=== PATIENT | female | born 1965 | race American Indian/Alaskan Native ===

== ENCOUNTER 2017-04-16 09:54 | Emergency (ER) | payer BC ==
[2017-04-16] MEDS ORDERED: TYLENOL #3 PO ONE (14:20)
[2017-04-16] MEDS ORDERED: MOTRIN PO ONE (14:22)
--- NOTE | 2017-04-16 14:22 | Emergency Department Report ---
ED Lower Extremity HPI - General Chief Complaint: Extremity Injury, Lower Stated Complaint: LEFT KNEE PAIN/SWELLING Time Seen by Provider: 04/16/17 14:18 Source: patient Mode of arrival: Ambulatory Limitations: No Limitations - History of Present Illness Initial Comments: 51-year-old female past medical history diabetes presents with complaint of left anterior knee pain status post mechanical blunt trauma yesterday. Patient states that she accidentally bumped the front of her left knee against a cabinet drawer. Denies any other injuries, denies sustaining any lacerations. Patient is ambulatory but complaining of pain in her left knee joint. MD Complaint: knee injury Onset/Timin -: days(s) Injury: Knee: Left (left anterior knee pain) Type of Injury: blunt Severity: moderate Severity scale (0 -10): 5 Improves With: NSAID Worsens With: nothing Context: direct blow Other Symptoms: loss of consciousness Associated Symptoms: swelling, ambulatory (patient ambulatory without assistance ) - Related Data Home Medications Medication Instructions Recorded Confirmed Last Taken Diazepam Tab [Valium] 1 tab PO PRN 11/05/15 11/05/15 Ibuprofen 800 mg PO Q6H 11/05/15 11/05/15 Unknown Lisinopril [Zestril TAB] 2.5 mg PO BID 11/05/15 11/05/15 11/05/15 metFORMIN [Glucophage] 1 tab PO BID 11/05/15 11/05/15 11/05/15 Previous Rx's Medication Instructions Recorded Last Taken Type Cyclobenzaprine HCl [Flexeril 5 MG 5 mg PO TID PRN #20 tab 11/05/15 Unknown Rx TAB] Acetaminophen/Codeine [Tylenol 1 tab PO Q6H PRN #12 tab 04/16/17 Unknown Rx /Codeine # 3 tab] Ibuprofen [Motrin] 800 mg PO Q8HR PRN #20 tablet 04/16/17 Unknown Rx Allergies Allergy/AdvReac Type Severity Reaction Status Date / Time No Known Allergies Allergy Unverified 11/05/15 11:04 ED Review of Systems ROS: Stated complaint: LEFT KNEE PAIN/SWELLING Other details as noted in HPI Constitutional: denies: chills, fever Eyes: denies: eye pain, eye discharge, vision change ENT: denies: ear pain, throat pain Respiratory: denies: cough, shortness of breath, wheezing Cardiovascular: denies: chest pain, palpitations Endocrine: no symptoms reported Gastrointestinal: denies: abdominal pain, nausea, diarrhea Genitourinary: denies: urgency, dysuria, discharge Musculoskeletal: denies: back pain, joint swelling, arthralgia Skin: denies: rash, lesions Neurological: denies: headache, weakness, paresthesias Psychiatric: denies: anxiety, depression Hematological/Lymphatic: denies: easy bleeding, easy bruising ED Past Medical Hx - Past Medical History Hx Diabetes: Yes - Surgical History Additional Surgical History: Hysterectomy - Social History Smoking Status: Current Some Day Smoker Substance Use Type: Alcohol - Medications Home Medications: Home Medications Medication Instructions Recorded Confirmed Last Taken Type Cyclobenzaprine HCl [Flexeril 5 MG 5 mg PO TID PRN #20 tab 11/05/15 Unknown Rx TAB] Diazepam Tab [Valium] 1 tab PO PRN 11/05/15 11/05/15 History Ibuprofen 800 mg PO Q6H 11/05/15 11/05/15 Unknown History Lisinopril [Zestril TAB] 2.5 mg PO BID 11/05/15 11/05/15 11/05/15 History metFORMIN [Glucophage] 1 tab PO BID 11/05/15 11/05/15 11/05/15 History Acetaminophen/Codeine [Tylenol 1 tab PO Q6H PRN #12 tab 04/16/17 Unknown Rx /Codeine # 3 tab] Ibuprofen [Motrin] 800 mg PO Q8HR PRN #20 tablet 04/16/17 Unknown Rx ED Physical Exam - General Limitations: No Limitations General appearance: alert, in no apparent distress - Head Head exam: Present: atraumatic, normocephalic - Eye Eye exam: Present: normal appearance, PERRL, EOMI - ENT ENT exam: Present: mucous membranes moist - Neck Neck exam: Present: normal inspection - Respiratory Respiratory exam: Present: normal lung sounds bilaterally. Absent: respiratory distress - Cardiovascular Cardiovascular Exam: Present: regular rate, normal rhythm. Absent: systolic murmur, diastolic murmur, rubs, gallop - GI/Abdominal GI/Abdominal exam: Present: soft, normal bowel sounds - Extremities Exam Extremities exam: Present: normal inspection - Expanded Lower Extremity Exam Left Upper Leg exam: Present: normal inspection, full ROM Knee exam: Present: full ROM (knee flexion and extension intact on exam against resistance), tenderness (tenderness and swelling anterior left knee level of patella), full knee extension Lower Leg exam: Present: normal inspection, full ROM Ankle exam: Present: normal inspection, full ROM Foot/Toe exam: Present: normal inspection, full ROM Neuro vascular tendon exam: Present: no vascular compromise (distal capillary refill dorsalis pedis pulses intact) 1 - Left anterior knee pain on palpation here some visible swelling - Back Exam Back exam: Present: normal inspection - Neurological Exam Neurological exam: Present: alert, oriented X3, CN II-XII intact, normal gait - Psychiatric Psychiatric exam: Present: normal affect, normal mood - Skin Skin exam: Present: warm, dry, intact, normal color. Absent: rash ED Course Vital Signs 04/16/17 04/16/17 10:05 15:17 Temperature 98.9 F 99.4 F Pulse Rate 101 H 96 H Respiratory 16 16 Rate Blood Pressure 141/98 113/70 O2 Sat by Pulse 98 99 Oximetry ED Lower Extremity MDM - Medical Decision Making A/P: Knee contusion 1-RICE therapy 2-Motrin and Tylenol 3 when necessary 3-Bryce wraps left knee 4-follow up with primary care and orthopedics Critical care attestation.: If time is entered above; I have spent that time in minutes in the direct care of this critically ill patient, excluding procedure time. ED Disposition Clinical Impression: Left knee pain Qualifiers: Chronicity: acute Qualified Code(s): M25.562 - Pain in left knee Disposition: DC- TO HOME OR SELFCARE Is pt being admited?: No Does the pt Need Aspirin: No Condition: Stable Instructions: Contusion in Adults (ED), Knee Pain (ED), Arthralgia (ED), RICE Therapy (ED) Prescriptions: Acetaminophen/Codeine [Tylenol /Codeine # 3 tab] 1 tab PO Q6H PRN #12 tab PRN Reason: Pain Ibuprofen [Motrin] 800 mg PO Q8HR PRN #20 tablet PRN Reason: Pain Referrals: RUBEN RUBIO MD [Staff Physician] - 3-5 Days Forms: Work/School Release Form(ED) Time of Disposition: 16:07
--- NOTE | 2017-04-16 14:55 | XRay Report ---
XRAY LEFT KNEE FOUR VIEWS: 04/16/17 09:54:00 CLINICAL: Pain after blunt trauma to the knee. FINDINGS: Mild osteopenia. No fracture or dislocation. Mild arthritis of the patellofemoral joint with small osteophytes. Mild medial joint space narrowing. Small knee joint effusion. Mild soft tissue edema of the anterior soft tissues of the distal thigh. No foreign body or soft tissue air. IMPRESSION: Small knee joint effusion and mild soft tissue edema. Mild patellofemoral joint and medial joint space arthritis.
[2017-04-16 15:19] VITALS: BP 113/70
--- NOTE | 2017-04-16 15:37 | Ultrasound Report ---
ULTRASOUND EXTREMITY NONVASCULAR LIMITED LEFT INDICATION: Status post knee trauma on Friday. Pain and swelling. Evaluate for Linton's cyst. COMPARISON: None similar. FINDINGS: Sonographic evaluation of the left knee demonstrates an elongated, 6 x 1.1 x 3.9 cm fluid collection at the knee anteriorly as on images 10-22. No evidence of a popliteal cyst. CONCLUSION: Left knee fluid collection anteriorly noted, as described. Thank you for the opportunity to participate in this patient's care.
== END 2017-04-16 16:31 | disposition home or self-care (01) ==
LOC: ED 09:54
DX: M25.562 Pain in left knee (principal); E11.9 Type 2 diabetes mellitus without complications; F17.200 Nicotine dependence, unspecified, uncomplicated

== ENCOUNTER 2017-12-02 05:28 | Emergency (ER) | payer BC ==
[2017-12-02 05:49] VITALS: BP 131/90
[2017-12-02 06:14] LABS: Basophils % (Auto) 0.5 % (0.0-1.8); Eosinophils # (Auto) 0.4 K/mm3 (0.0-0.4); Eosinophils % (Auto) 6.1 % (0.0-4.3); Hematocrit 43.1 % (30.3-42.9); Hemoglobin 14.7 gm/dl (10.1-14.3); Lymphocytes # (Auto) 2.4 K/mm3 (1.2-5.4); Lymphocytes % (Auto) 38.8 % (13.4-35.0); Mean Corpuscular HGB Conc 34 % (30-34); Mean Corpuscular Hemoglobin 33 pg (28-32); Mean Corpuscular Volume 97 fl (79-97); Monocytes # (Auto) 0.5 K/mm3 (0.0-0.8); Monocytes % (Auto) 7.8 % (0.0-7.3); Platelet Count 256 K/mm3 (140-440); Red Blood Count 4.43 M/mm3 (3.65-5.03); Red Cell Distribution Width 12.5 % (13.2-15.2)
[2017-12-02 06:34] LABS: Alanine Aminotransferase 19 units/L (7-56); Albumin 4.5 g/dL (3.9-5); BUN/Creatinine Ratio 37; Blood Urea Nitrogen 22 mg/dL (7-17); Calcium 9.7 mg/dL (8.4-10.2); Hemolysis Index 3; Lipase 24 units/L (13-60)
[2017-12-02 07:32] LABS: Bilirubin,Urine NEG (Negative); Blood,Urine LG (Negative); Color,Urine Yellow (Yellow); Mucus,Urine 1+ /HPF; Urobilinogen,Urine < 2.0 mg/dL (<2.0)
== END 2017-12-02 19:07 | disposition left against medical advice (07) ==
LOC: ED 05:28
DX: R73.9 Hyperglycemia, unspecified (principal); R10.9 Unspecified abdominal pain; R11.0 Nausea; R51 Headache; Z53.21 Procedure and treatment not carried out due to patient leaving prior to being seen by health care provider
CPT/HCPCS: 36415; 80053; 81001; 82962; 83690; 85025

== ENCOUNTER 2020-12-07 07:01 | Emergency (ER) | payer BC, OTHER ==
--- NOTE | 2020-12-07 07:33 | Event Note ---
ED Screening Note Date of service: 12/07/20 Time: 07:31 ED Screening Note: 55 yr old female with pmhx of DM, IBS, chronic right LQ pain and tobacco use presents to ED with complaints of left ear pain and right upper quadrant abdominal pain since Friday. She reports nausea but no vomiting. She has chronic diarrhea due to her IBS but she states that Friday she had increased amount of diarrhea but this has since slowed down. She reports rhinorrhea but no other URI symptoms or cough. She denies any chest pain or shortness of breath. She denies any UTI symptoms. She denies any fever or chills at home. This initial assessment/diagnostic orders/clinical plan/treatment(s) is/are subject to change based on patients health status, clinical progression and re- assessment by fellow clinical providers in the ED. Further treatment and workup at subsequent clinical providers discretion. Patient/guardian urged not to elope from the ED as their condition may be serious if not clinically assessed and managed. Initial orders include: Abdominal pain order set
[2020-12-07 08:01] LABS: Basophils % (Auto) 0.4 % (0.0-1.8); Eosinophils % (Auto) 0.3 % (0.0-4.3); Hematocrit 36.6 % (30.3-42.9); Hemoglobin 12.6 gm/dl (10.1-14.3); Lymphocytes # (Auto) 1.1 K/mm3 (1.2-5.4); Lymphocytes % (Auto) 10.1 % (13.4-35.0); Mean Corpuscular HGB Conc 34 % (30-34); Mean Corpuscular Volume 98 fl (79-97); Monocytes # (Auto) 0.6 K/mm3 (0.0-0.8); Platelet Count 227 K/mm3 (140-440); Red Blood Count 3.74 M/mm3 (3.65-5.03); Red Cell Distribution Width 12.9 % (13.2-15.2)
[2020-12-07] MEDS ORDERED: KETOROLAC 30 MG/1 ML INJ IV ONE (08:08)
--- NOTE | 2020-12-07 08:09 | Emergency Department Report ---
ED General Adult HPI - General Chief complaint: Abdominal Pain Stated complaint: LEFT EARACHE/RT SIDE PAIN Time Seen by Provider: 12/07/20 08:04 Source: patient Mode of arrival: Ambulatory Limitations: No Limitations - History of Present Illness Initial comments: Patient presents for evaluation of 4-day history of intermittent left-sided ear pain. Patient states at symptom onset, she sneezed 1 time (denies any ongoing cough, denies sore throat, denies fever) and abruptly began having crampy moderate right lower quadrant abdominal pain which has occurred intermittently since. Patient denies nausea vomiting or diarrhea, denies constipation, denies dysuria. - Related Data Home Medications Medication Instructions Recorded Confirmed Last Taken Ibuprofen 800 mg PO Q6H 11/05/15 11/05/15 Unknown Lisinopril [Zestril TAB] 2.5 mg PO BID 11/05/15 11/05/15 11/05/15 diazePAM TAB [Valium] 1 tab PO PRN 11/05/15 11/05/15 metFORMIN [Glucophage] 1 tab PO BID 11/05/15 11/05/15 11/05/15 Previous Rx's Medication Instructions Recorded Last Taken Type Cyclobenzaprine HCl [Flexeril 5 MG 5 mg PO TID PRN #20 tab 11/05/15 Unknown Rx TAB] Acetaminophen/Codeine [Tylenol 1 tab PO Q6H PRN #12 tab 04/16/17 Unknown Rx /Codeine # 3 tab] Ibuprofen [Motrin] 800 mg PO Q8HR PRN #20 tablet 04/16/17 Unknown Rx Docusate Sodium [Colace] 100 mg PO BID PRN #30 capsule 08/15/18 Unknown Rx Ibuprofen [Motrin 800 MG tab] 800 mg PO Q8HR PRN #20 tablet 08/15/18 Unknown Rx Ondansetron [Zofran ODT TAB] 8 mg PO Q8HR #20 tab.rapdis 08/15/18 Unknown Rx traMADoL [Ultram] 50 mg PO Q6HR PRN #14 tablet 08/15/18 Unknown Rx Amoxicillin/Potassium Clav 1 each PO BID #20 tablet 12/07/20 Unknown Rx [Augmentin 875-125 Tablet] Ciprofloxacin 0.2%(Nf) 4 each OT BID 7 Days #1 droperette 12/07/20 Unknown Rx [Ciprofloxacin OTIC] oxyCODONE /ACETAMINOPHEN [Percocet 1 tab PO Q6HR PRN #10 tablet 12/07/20 Unknown Rx 5/325] Allergies Allergy/AdvReac Type Severity Reaction Status Date / Time No Known Allergies Allergy Verified 12/07/20 07:18 ED Review of Systems ROS: Stated complaint: LEFT EARACHE/RT SIDE PAIN Other details as noted in HPI Comment: All other systems reviewed and negative ED Past Medical Hx - Past Medical History Hx Diabetes: Yes Hx Kidney Stones: Yes - Surgical History Additional Surgical History: Hysterectomy, X2, kidney stone removal. IUFD @ 13 weeks, delivered at 8 months. cyst removed from ovary - Social History Smoking Status: Never Smoker Substance Use Type: None - Medications Home Medications: Home Medications Medication Instructions Recorded Confirmed Last Taken Type Cyclobenzaprine HCl [Flexeril 5 MG 5 mg PO TID PRN #20 tab 11/05/15 Unknown Rx TAB] Ibuprofen 800 mg PO Q6H 11/05/15 11/05/15 Unknown History Lisinopril [Zestril TAB] 2.5 mg PO BID 11/05/15 11/05/15 11/05/15 History diazePAM TAB [Valium] 1 tab PO PRN 11/05/15 11/05/15 History metFORMIN [Glucophage] 1 tab PO BID 11/05/15 11/05/15 11/05/15 History Acetaminophen/Codeine [Tylenol 1 tab PO Q6H PRN #12 tab 04/16/17 Unknown Rx /Codeine # 3 tab] Ibuprofen [Motrin] 800 mg PO Q8HR PRN #20 tablet 04/16/17 Unknown Rx Docusate Sodium [Colace] 100 mg PO BID PRN #30 capsule 08/15/18 Unknown Rx Ibuprofen [Motrin 800 MG tab] 800 mg PO Q8HR PRN #20 tablet 08/15/18 Unknown Rx Ondansetron [Zofran ODT TAB] 8 mg PO Q8HR #20 tab.rapdis 08/15/18 Unknown Rx traMADoL [Ultram] 50 mg PO Q6HR PRN #14 tablet 08/15/18 Unknown Rx Amoxicillin/Potassium Clav 1 each PO BID #20 tablet 12/07/20 Unknown Rx [Augmentin 875-125 Tablet] Ciprofloxacin 0.2%(Nf) 4 each OT BID 7 Days #1 droperette 12/07/20 Unknown Rx [Ciprofloxacin OTIC] oxyCODONE /ACETAMINOPHEN [Percocet 1 tab PO Q6HR PRN #10 tablet 12/07/20 Unknown Rx 5/325] ED Physical Exam - General Limitations: No Limitations General appearance: alert, in no apparent distress - Head Head exam: Present: atraumatic, normocephalic - Eye Eye exam: Present: normal appearance - ENT ENT exam: Present: other (Tenderness on manipulation of left helix and tragus, swelling and erythema to left otic canal) - Neck Neck exam: Present: normal inspection - Respiratory Respiratory exam: Present: normal lung sounds bilaterally. Absent: respiratory distress - Cardiovascular Cardiovascular Exam: Present: regular rate, normal rhythm - GI/Abdominal GI/Abdominal exam: Present: soft, tenderness (Moderate right lower quadrant tenderness), normal bowel sounds - Extremities Exam Extremities exam: Present: normal inspection - Back Exam Back exam: Present: normal inspection - Neurological Exam Neurological exam: Present: alert, oriented X3 - Psychiatric Psychiatric exam: Present: normal affect, normal mood - Skin Skin exam: Present: warm, dry, intact, normal color. Absent: rash ED Course Vital Signs 12/07/20 12/07/20 12/07/20 07:22 08:28 08:30 Temperature 100.1 F H Pulse Rate 114 H Respiratory 20 Rate Blood Pressure 133/81 O2 Sat by Pulse 98 96 97 Oximetry 12/07/20 12/07/20 12/07/20 08:45 09:00 09:51 Temperature Pulse Rate 110 H 111 H 113 H Respiratory 21 Rate Blood Pressure 124/73 124/73 115/70 O2 Sat by Pulse 96 96 Oximetry 12/07/20 12/07/20 12/07/20 10:00 10:15 10:31 Temperature Pulse Rate 112 H 116 H 115 H Respiratory 24 30 H Rate Blood Pressure 122/72 122/72 115/70 O2 Sat by Pulse Oximetry 12/07/20 12/07/20 12/07/20 10:45 11:00 11:15 Temperature Pulse Rate 117 H 116 H 118 H Respiratory 34 H 33 H 28 H Rate Blood Pressure 115/70 107/62 107/62 O2 Sat by Pulse Oximetry 12/07/20 12/07/20 12/07/20 11:43 11:45 12:00 Temperature Pulse Rate 116 H Respiratory 38 H Rate Blood Pressure 122/72 122/72 113/68 O2 Sat by Pulse 96 98 97 Oximetry 12/07/20 12/07/20 12/07/20 12:31 13:00 13:30 Temperature Pulse Rate 120 H 109 H 103 H Respiratory 20 29 H 33 H Rate Blood Pressure 113/68 90/53 87/58 O2 Sat by Pulse 97 96 95 Oximetry 12/07/20 12/07/20 12/07/20 13:45 14:01 14:15 Temperature Pulse Rate 107 H 108 H 108 H Respiratory 32 H 34 H 30 H Rate Blood Pressure 86/56 95/60 99/63 O2 Sat by Pulse 93 94 95 Oximetry - Reevaluation(s) Reevaluation #1: 12/07/20 10:04 Patient initially treated with IV normal saline and Toradol 50 mg IV x1. Reevaluation #2: 12/07/20 10:04 On reevaluation, patient remains in no acute distress, however, remains tachycardic, consequently given additional IV normal saline 1 L x 1. Patient continues to complain of severe left ear pain, given morphine 4 mg IV x1, CT shows diverticulitis, treated with Zosyn 4.5 g IV x1. Reevaluation #3: 12/07/20 11:08 Patient remains tachycardic, given Tylenol 975 p.o. x1 Reevaluation #4: 12/07/20 14:46 Patient given third liter IV normal saline as she remains tachycardic, blood pressure at one point borderline low at 90/46, patient has multiple consecutive reassuring values with systolic greater than 100, in no acute distress, requesting food. Abdomen soft, minimal right lower quadrant tenderness consistent with CT read of diverticulitis. Patient nontoxic-appearing, advised she must follow-up with primary care doctor and/or GI and/or surgery in 1 to 2 days for reevaluation, noting further imaging and/or surgical resection of area may be necessary. ED Medical Decision Making - Lab Data Result diagrams: 12/07/20 07:49 12/07/20 07:49 Labs 12/07/20 12/07/20 07:49 07:49 WBC 10.8 RBC 3.74 Hgb 12.6 Hct 36.6 MCV 98 H MCH 34 H MCHC 34 RDW 12.9 L Plt Count 227 Lymph % (Auto) 10.1 L Desha % (Auto) 6.0 Eos % (Auto) 0.3 Baso % (Auto) 0.4 Lymph # (Auto) 1.1 L Desha # (Auto) 0.6 Eos # (Auto) 0.0 Baso # (Auto) 0.0 Seg Neutrophils % 83.2 H Seg Neutrophils # 9.0 H Sodium 135 L Potassium 4.1 Chloride 102.1 Carbon Dioxide 24 Anion Gap 13 BUN 19 H Creatinine 0.6 Estimated GFR > 60 BUN/Creatinine Ratio 32 Glucose 167 H Calcium 8.9 Total Bilirubin 0.40 Direct Bilirubin < 0.2 Indirect Bilirubin 0.2 AST 10 ALT 18 Alkaline Phosphatase 91 Total Protein 7.1 Albumin 3.8 L Albumin/Globulin Ratio 1.2 Lipase 22 Vital Signs 12/07/20 12/07/20 12/07/20 07:22 08:28 08:30 Temperature 100.1 F H Pulse Rate 114 H Respiratory 20 Rate Blood Pressure 133/81 O2 Sat by Pulse 98 96 97 Oximetry 12/07/20 12/07/20 12/07/20 08:45 09:00 09:51 Temperature Pulse Rate 110 H 111 H 113 H Respiratory 21 Rate Blood Pressure 124/73 124/73 115/70 O2 Sat by Pulse 96 96 Oximetry 12/07/20 12/07/20 12/07/20 10:00 10:15 10:31 Temperature Pulse Rate 112 H 116 H 115 H Respiratory 24 30 H Rate Blood Pressure 122/72 122/72 115/70 O2 Sat by Pulse Oximetry 12/07/20 12/07/20 12/07/20 10:45 11:00 11:15 Temperature Pulse Rate 117 H 116 H 118 H Respiratory 34 H 33 H 28 H Rate Blood Pressure 115/70 107/62 107/62 O2 Sat by Pulse Oximetry 12/07/20 12/07/20 12/07/20 11:43 11:45 12:00 Temperature Pulse Rate 116 H Respiratory 38 H Rate Blood Pressure 122/72 122/72 113/68 O2 Sat by Pulse 96 98 97 Oximetry 12/07/20 12/07/20 12/07/20 12:31 13:00 13:30 Temperature Pulse Rate 120 H 109 H 103 H Respiratory 20 29 H 33 H Rate Blood Pressure 113/68 90/53 87/58 O2 Sat by Pulse 97 96 95 Oximetry 12/07/20 12/07/20 12/07/20 13:45 14:01 14:15 Temperature Pulse Rate 107 H 108 H 108 H Respiratory 32 H 34 H 30 H Rate Blood Pressure 86/56 95/60 99/63 O2 Sat by Pulse 93 94 95 Oximetry - Radiology Data Radiology results: report reviewed CT ABDOMEN AND PELVIS WITH CONTRAST INDICATION / CLINICAL INFORMATION: MAIN. TECHNIQUE: Axial CT images were obtained through the abdomen and pelvis after 100 cc of Omnipaque [address] scans at this location are performed using CT dose reduction for ALARA by means of automated exposure control. COMPARISON: CT scan dated 08/15/2018 FINDINGS: LOWER CHEST: No significant abnormality. LIVER: No significant abnormality. GALLBLADDER: No significant abnormality. BILE DUCTS: No significant abnormality. PANCREAS: No significant abnormality. SPLEEN: No significant abnormality. ADRENALS: No significant abnormality. RIGHT KIDNEY / URETER: Several renal cysts are noted and appear unchanged which has minimal calcification. There is calyceal stones the largest measures 1 cm in the mid right kidney. This measures up to 752 Hounsfield units. LEFT KIDNEY / URETER: Renal cysts are noted and appear unchanged. STOMACH / SMALL BOWEL: No significant abnormality. COLON: There is diverticulitis involving the proximal right colon. There is extraluminal gas in the mesentery adjacent to the colon there is surrounding inflammation. There is no abscess. APPENDIX: No significant abnormality. PERITONEUM: No free fluid. No free air. No fluid collection. LYMPH NODES: No significant adenopathy. AORTA / ARTERIES: No significant abnormality. IVC / VEINS: No significant abnormality. URINARY BLADDER: No significant abnormality. REPRODUCTIVE ORGANS: No significant abnormality. ADDITIONAL FINDINGS: None. SKELETAL SYSTEM: There is discogenic degenerative change at L5-S1. Posterior disc protrusion at L5-S1 IMPRESSION: 1. There is acute diverticulitis involving the proximal right colon. There is extraluminal air in the adjacent mesentery and there is surrounding admission. There is no abscess. The appendix is unremarkable. Signer Name: Wilver Pearson MD Signed: 12/07/2020 8:51 AM Workstation Name: [id number] Critical care attestation.: If time is entered above; I have spent that time in minutes in the direct care of this critically ill patient, excluding procedure time. ED Disposition Clinical Impression: Diverticulitis large intestine, Otitis externa, left Disposition: DC-01 TO HOME OR SELFCARE Is pt being admited?: No Condition: Stable Instructions: Ear Drops, Adult, Otitis Externa, [id number], Diverticulitis, Abdominal Pain (ED) Additional Instructions: Follow-up with PMD and GI in 1 to 2 days for reevaluation. Please note you may require colonoscopy and surgical evaluation for your diverticulitis. Return to the emergency department for worsening symptoms. Prescriptions: Amoxicillin/Potassium Clav [Augmentin 875-125 Tablet] 1 each PO BID #20 tablet Ciprofloxacin 0.2%(Nf) [Ciprofloxacin OTIC] 4 each OT BID 7 Days #1 droperette oxyCODONE /ACETAMINOPHEN [Percocet 5/325] 1 tab PO Q6HR PRN #10 tablet PRN Reason: Pain Referrals: CLAYTON AYALA MD [Primary Care Provider] - 3-5 Days Forms: Work/School Release Form(ED)
[2020-12-07 08:23] LABS: Alanine Aminotransferase 18 units/L (7-56); Albumin 3.8 g/dL (3.9-5); Blood Urea Nitrogen 19 mg/dL (7-17); Calcium 8.9 mg/dL (8.4-10.2); Hemolysis Index 5
[2020-12-07] MEDS: SODIUM CHLORIDE 0.9% 1000 ML 1,000 ML IV ONE ×2 (08:25→11:56)
[2020-12-07 08:53] LABS: BUN/Creatinine Ratio 32; Bilirubin,Direct < 0.2 mg/dL (0-0.2)
--- NOTE | 2020-12-07 09:56 | Cat Scan Report ---
CT ABDOMEN AND PELVIS WITH CONTRAST INDICATION / CLINICAL INFORMATION: MAIN. TECHNIQUE: Axial CT images were obtained through the abdomen and pelvis after 100 cc of Omnipaque [address] scans at this location are performed using CT dose reduction for ALARA by means of automated exposure control. COMPARISON: CT scan dated 08/15/2018 FINDINGS: LOWER CHEST: No significant abnormality. LIVER: No significant abnormality. GALLBLADDER: No significant abnormality. BILE DUCTS: No significant abnormality. PANCREAS: No significant abnormality. SPLEEN: No significant abnormality. ADRENALS: No significant abnormality. RIGHT KIDNEY / URETER: Several renal cysts are noted and appear unchanged which has minimal calcifica tion. There is calyceal stones the largest measures 1 cm in the mid right kidney. This measures up to 752 Hounsfield units. LEFT KIDNEY / URETER: Renal cysts are noted and appear unchanged. STOMACH / SMALL BOWEL: No significant abnormality. COLON: There is diverticulitis involving the proximal right colon. There is extraluminal gas in the m esentery adjacent to the colon there is surrounding inflammation. There is no abscess. APPENDIX: No significant abnormality. PERITONEUM: No free fluid. No free air. No fluid collection. LYMPH NODES: No significant adenopathy. AORTA / ARTERIES: No significant abnormality. IVC / VEINS: No significant abnormality. URINARY BLADDER: No significant abnormality. REPRODUCTIVE ORGANS: No significant abnormality. ADDITIONAL FINDINGS: None. SKELETAL SYSTEM: There is discogenic degenerative change at L5-S1. Posterior disc protrusion at L5-S1 IMPRESSION: 1. There is acute diverticulitis involving the proximal right colon. There is extraluminal air in the adjacent mesentery and there is surrounding admission. There is no abscess. The appendix is unremark able. Signer Name: Wilver Pearson MD Signed: 12/07/2020 9:51 AM Workstation Name: [id number]
[2020-12-07] MEDS ORDERED: PIPERACIL/TAZOBACTA 4.5/NS 100 4.5 GM/100 ML VIAL IV ONE (10:03)
[2020-12-07] MEDS ORDERED: MORPHINE 4 MG/1 ML INJ IV ONE (10:03)
[2020-12-07] MEDS ORDERED: ACETAMINOPHEN 325 MG TAB PO ONE (11:07)
[2020-12-07] MEDS ORDERED: SODIUM CHLORIDE 0.9% 1000 ML 1,000 ML ONE (11:50)
[2020-12-07] MEDS ORDERED: SODIUM CHLORIDE 0.9% 1000 ML 1,000 ML IV ONE (11:53)
[2020-12-07] MEDS ORDERED: ONDANSETRON 4 MG/2 ML INJ ONE (13:25)
[2020-12-07] MEDS ORDERED: SODIUM CHLORIDE 0.9% 1000 ML 1,000 ML IV STA (13:38)
[2020-12-07] MEDS ORDERED: ONDANSETRON 4 MG/2 ML INJ IV STA (13:38)
[2020-12-07 14:25] VITALS: BP 99/63
== END 2020-12-07 15:20 | disposition home or self-care (01) ==
LOC: ED 07:01
DX: K57.32 Diverticulitis of large intestine without perforation or abscess without bleeding (principal); H60.92 Unspecified otitis externa, left ear; E11.9 Type 2 diabetes mellitus without complications; Z90.710 Acquired absence of both cervix and uterus; Z98.890 Other specified postprocedural states; Z79.1 Long term (current) use of non-steroidal anti-inflammatories (NSAID); Z79.2 Long term (current) use of antibiotics; Z79.899 Other long term (current) drug therapy
CPT/HCPCS: 36415; 74177; 80048; 80076; 83690; 85025; 96361; 96365; 96375; 99284; J1885; J2270; J2405; J2543; J7030; Q9967